=== PATIENT | male | born 1950 | race Caucasian/White ===

== ENCOUNTER → 2017-10-13 | Outpatient (CLI) | payer OTHER, BC ==
[~2017-10-13] MED LIST: ASPI1TAB83 PO; BIOFTAB30 PO; DOCU1CAP60 PO; FEXO1TAB45 PO; FLNIN NAE; IBUP1CAP9 PO; LEVO100T PO; OMEGCAP2 PO; REDCAP2 PO; WARF2TAB PO
--- NOTE | 2017-10-13 13:21 | DIAGNOSTIC IMAGING REPORT ---
AP PELVIS AND BILATERAL HIPS 3 VIEWS CLINICAL HISTORY: BILATERAL HIP PAIN COMPARISON: 03/04/2016 DISCUSSION: There are postsurgical changes of a total right hip arthroplasty. No acute fractures are visualized. The joint space of the left hip appears well-preserved for age. There are no erosive or destructive changes. There is a stable corticated calcification located adjacent to the left ischium. IMPRESSION: Postsurgical changes of a total right hip arthroplasty. No acute fractures. The joint space of the left hip appears well-preserved. Electronically signed by: Phil Altman M.D. 10/13/2017 1:20 PM Dictated Date/Time: 10/13/2017 1:18 PM
== END | disposition home or self-care (01) ==
LOC: C.RDSM 17:21
PROVIDERS: ATTEND Physician Assistant
DX: M25.551 Pain in right hip (principal); M25.552 Pain in left hip